=== PATIENT | female | born 1990 | race Hispanic/Latino ===

== ENCOUNTER 2017-04-11 19:54 | Emergency (ER) | payer MEDICAID ==
[2017-04-11 19:55] VITALS: BMI 36.3
[2017-04-11 20:15] VITALS: BP 116/82; PULSE 92; RESP 18; TEMP 98.7; O2SAT 96
--- NOTE | 2017-04-11 20:43 | C.PDOC ---
History Of Present Illness 26 year old female with redness and swelling to left elbow area after insect bite today. She report area is itchy and then developed pain with swelling. She denies any drainage, fever or other complaints. Time Seen by Provider: 04/11/17 20:17 Chief Complaint (Nursing): Abnormal Skin Integrity History Per: Patient History/Exam Limitations: no limitations Onset/Duration Of Symptoms: Hrs Current Symptoms Are (Timing): Still Present Location Of Injury: Left: Elbow Quality Of Symptoms: Painful, Itching, Swollen. denies: Draining Recent travel outside of the [place]: No Past Medical History Reviewed: Historical Data, Nursing Documentation, Vital Signs Vital Signs: Last Vital Signs Temp 98.7 F 04/11/17 20:11 Pulse 92 H 04/11/17 20:11 Resp 18 04/11/17 20:11 BP 116/82 04/11/17 20:11 Pulse Ox 96 04/12/17 00:30 - Medical History PMH: Arthritis, Asthma, HTN, Rheumatoid Arthritis Surgical History: Appendectomy, - [facility] Procedures LOW CERVICAL (09/26/14) Family History: States: Unknown Family Hx - Social History Hx Tobacco Use: Yes Hx Alcohol Use: No Hx Substance Use: No - Immunization History Hx Tetanus Toxoid Vaccination: No Hx Influenza Vaccination: No Hx Pneumococcal Vaccination: No Review Of Systems Constitutional: Negative for: Fever, Chills ENT: Negative for: Mouth Swelling, Throat Swelling Cardiovascular: Negative for: Chest Pain Respiratory: Negative for: Shortness of Breath Skin: Positive for: Other (redness, swelling, and pain to left elbow area from "insect bite" ) Neurological: Negative for: Weakness, Numbness Physical Exam - Physical Exam Appears: Non-toxic, No Acute Distress Skin: Warm, Dry Head: Atraumatic, Normacephalic Eye(s): bilateral: Normal Inspection Neck: Normal ROM, Supple Chest: Symmetrical Cardiovascular: Rhythm Regular, No Murmur Respiratory: Normal Breath Sounds, No Rales, No Rhonchi, No Wheezing Extremity: Normal ROM, Capillary Refill (good capillary refill, less than 2 seconds ), No Deformity, Swelling (left dorsal elbow with insect bite and surrounding erythema. No discharge or weeping. ) Pulses: Left Radial: Normal Neurological/Psych: Oriented x3, Normal Speech Gait: Steady ED Course And Treatment O2 Sat by Pulse Oximetry: 96 (room air ) Progress Note: Patient was given Benadryl. Medical Decision Making Medical Decision Makin26 year old female with redness and swelling to left elbow area and central insect bite. No signs of abscess or cellulitis. Benadryl PO given for itching. Patient advised to keep area clean and can continue with antihistamine. Disposition Counseled Patient/Family Regarding: Diagnosis, Need For Followup, Rx Given - Disposition Disposition: HOME/ ROUTINE Disposition Time: 20:41 Condition: IMPROVED Additional Instructions: Take Benadryl 25-50mg every 6 hours for itching and inflammation You can apply cortisone cream to area daily Prescriptions: DiphenhydrAMINE [Benadryl] 25 mg PO Q6 #30 cap Instructions: Insect Bite or Sting (ED) Forms: [facility] (Chinese) - POA Present On Arrival: None - Clinical Impression Clinical Impression: Insect bite - wound - PA / [employer] / Resident Statement MD/DO has reviewed & agrees with the documentation as recorded. - Scribe Statement The provider has reviewed the documentation as recorded by the Scribe Farhana Whatley All medical record entries made by the Santiibyael were at my direction and personally dictated by me. I have reviewed the chart and agree that the record accurately reflects my personal performance of the history, physical exam, medical decision making, and the department course for this patient. I have also personally directed, reviewed, and agree with the discharge instructions and disposition.
== END 2017-04-11 20:51 | disposition home or self-care (01) ==
LOC: C.ER 19:54
DX: S50.362A Insect bite (nonvenomous) of left elbow, initial encounter (principal); W57.XXXA Bitten or stung by nonvenomous insect and other nonvenomous arthropods, initial encounter

== ENCOUNTER 2018-04-20 03:38 | Emergency (ER) | payer MEDICAID ==
[2018-04-20 03:38] VITALS: BMI 36.3
[2018-04-20 03:50] VITALS: TEMP 98.6
[2018-04-20] MEDS ORDERED: Apap-Butalbital-Caffeine 325-50-40mg Tab PO STA ×2 (04:03)
[2018-04-20] MEDS ORDERED: Apap-Butalbital-Caffeine 325-50-40mg Tab ONE ×2 (04:05→04:11)
--- NOTE | 2018-04-20 04:37 | C.PDOC ---
History Of Present Illness 27 year old female, whose PMHx includes Migraines, presents to the ED for evaluation of a frontal headache which began 4 days ago. Patient has been taking Tylenol with Codeine without relief. She notes symptoms worsened tonight with nausea, and presents to the ED for further evaluation. She notes current symptoms are similar to prior and denies vision change, photophobia, or thunder clap appearance. Time Seen by Provider: 04/20/18 03:51 Chief Complaint (Nursing): Headache History Per: Patient History/Exam Limitations: no limitations Onset/Duration Of Symptoms: Days (4) Current Symptoms Are (Timing): Worse Quality: Aching, "Pain" Preceeding Symptoms: Known Migraine Symptoms. denies: Visual Disturbances Associated Symptoms: Nausea. denies: Photophobia, Blurred Vision Additional History Per: Patient Past Medical History Reviewed: Historical Data, Nursing Documentation, Vital Signs Vital Signs: Last Vital Signs Temp 98.6 F 04/20/18 03:46 Pulse 73 04/20/18 03:46 Resp 20 04/20/18 03:46 BP 117/75 04/20/18 03:46 Pulse Ox 100 04/20/18 05:06 - Medical History PMH: Arthritis, Asthma, HTN, Migraine, Rheumatoid Arthritis Surgical History: Appendectomy, - [facility] Procedures LOW CERVICAL (09/26/14) Family History: States: Unknown Family Hx - Social History Hx Tobacco Use: Yes Hx Alcohol Use: No Hx Substance Use: No - Immunization History Hx Tetanus Toxoid Vaccination: No Hx Influenza Vaccination: No Hx Pneumococcal Vaccination: No Review Of Systems Eyes: Negative for: Vision Change Gastrointestinal: Positive for: Nausea, Abdominal Pain Neurological: Positive for: Headache (frontal ) Physical Exam - Physical Exam Appears: Non-toxic, No Acute Distress, Other (conversating with mother at bedside ) Skin: Normal Color, Warm, Dry Head: Atraumatic, Normacephalic Eye(s): bilateral: Normal Inspection Ear(s): Bilateral: Normal Nose: Normal, No Discharge Oral Mucosa: Moist Throat: Normal, No Erythema, No Exudate Neck: Normal ROM, Supple Chest: Symmetrical, No Deformity, No Tenderness Cardiovascular: Rhythm Regular, No Murmur Respiratory: Normal Breath Sounds, No Rales, No Rhonchi, No Wheezing Extremity: Normal ROM, Capillary Refill (less than 2 seconds ) Neurological/Psych: Oriented x3, Normal Speech, Normal Cognition ED Course And Treatment O2 Sat by Pulse Oximetry: 100 (on RA) Pulse Ox Interpretation: Normal Progress Note: Fioricet PO and Zofran PO given. On re-examination patient is showing no signs of distress and is sleeping comfortably on the stretcher. Patient is stable for discharge and is advised to follow up with her PMD within 1-2 days for further evaluation. Disposition Counseled Patient/Family Regarding: Diagnosis, Need For Followup, Rx Given - Disposition Referrals: Golden Fontenot MD [Staff Provider] - Disposition: HOME/ ROUTINE Disposition Time: 05:19 Condition: STABLE Additional Instructions: take medications as directed Follwo up with PMD tomorrow for further evaluation Return to ER if worse Prescriptions: Acetaminophen/Butalbital/Caf [Fioricet] 1 tab PO TID PRN #20 tab PRN Reason: Headache Ibuprofen [Motrin] 600 mg PO Q6H #14 tab Instructions: Migraine Headache (DC) Forms: [employer] (German) - Clinical Impression Clinical Impression: Headache, Migraine - 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 - Scribe Statement The provider has reviewed the documentation as recorded by the Scribe (Carolyn Belcher) All medical record entries made by the Scribe were at my direction and personally dictated by me. I have reviewed the chart and agree that the record accurately reflects my personal performance of the history, physical exam, medical decision making, and the department course for this patient. I have also personally directed, reviewed, and agree with the discharge instructions and disposition.
[2018-04-20 06:36] VITALS: BP 110/73; PULSE 78; RESP 18
[2018-04-20 06:50] VITALS: O2SAT 100
== END 2018-04-20 06:35 | disposition home or self-care (01) ==
LOC: C.ER 03:38
DX: G43.909 Migraine, unspecified, not intractable, without status migrainosus (principal)
CPT/HCPCS: 96372; 99284; J1885